=== PATIENT | female | born 1950 | race Caucasian/White ===

== ENCOUNTER 2017-11-05 12:45 | Outpatient (CLI) ==
--- NOTE | 2017-11-05 13:35 | CT ---
EXAM: CT sinuses/facial bones without contrast HISTORY: Chronic sinusitis COMPARISON: None TECHNIQUE: Serial axial images of the facial bones/sinuses were obtained without IV contrast. These were viewed in coronal, sagittal and axial planes. FINDINGS: The maxillary sinuses are clear. There is minimal mucosal thickening of the ethmoid air c ells. The sphenoid sinuses are clear. Frontal sinuses are clear. The mastoid air cells are normal. There is rightward nasal septal deviation with a 0.3 cm rightward nasal septal spur. The nasal tur binates are normal. Ostiomeatal units are patent. The soft tissues are unremarkable. IMPRESSION: 1. Minimal mucosal thickening in the ethmoid air cells. 2. Mild rightward nasal septal deviation with a nasal septal spur. 3. Ostiomeatal units are patent.
--- NOTE | 2017-11-05 20:05 | MRI ---
EXAM: Brain and posterior fossa MRI with and without contrast. HISTORY: Left facial weakness and headache. COMPARISON: Sinus CT scan 11/05/2017. TECHNIQUE: Multiplanar, multisequence MR images were acquired of the brain with thin sections throug h the posterior fossa before and after administration of intravenous contrast. FINDINGS: The midline structures are central and the craniocervical junction is unremarkable. There is mild prominence of the subarachnoid space anterior to both frontal lobes. The ventricles are nor mal in size. There is mild prominence of some frontal and parietal sulci at the convexity. These fi ndings are compatible normal variation. The brain parenchyma has small T2 hyperintensities in the supratentorial white matter and right caleb idline hernandez compatible with mild to moderate supratentorial and mild pontine leukomalacia. Many of th e T2 hyperintensities have T2 shine through. There is a small area of diffusion restriction with serafin nt bright B 1000, dark ADC signal in the left paramidline hernandez (B 1000 images #7,8). This is without T2 hyperintensity on the standard axial T2W images. However, there is possible faint bright T2 sign al in this area on the thin section coronal T2W sequence. This is suggestive of a small area of rece nt ischemia. After administration of gadolinium, no enhancing lesions are identified. The corpus matt losum has a normal configuration. The sella is expanded and the pituitary gland flattened inferiorly consistent with a mostly empty sella. There are no intraorbital masses. There has been previous lens surgery bilaterally. Hyperostosis fr ontalis interna is present. Mild scattered mucosal thickening is present in the ethmoid air cells. There is rightward nasal septal deviation with a small spur. Middle ears and mastoids are unremarkab le. There is no abnormal contrast enhancement in the internal auditory canals labyrinthine structure s. Flow voids are present in the major intracranial arteries. Dural venous sinuses are patent. IMPRESSION: 1. Possible small area of recent ischemia left paramidline hernandez. 2. No intracranial mass or acute hemorrhage. 3. 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 Clinical considerations include c hronic ischemic small vessel disease and sequela of migraines. 4. Mostly empty sella.
== END 2017-11-05 12:46 | disposition home or self-care (01) ==
LOC: RAD 12:45
PROVIDERS: ATTEND Family Medicine
DX: R29.810 Facial weakness (principal); R51 Headache; J30.89 Other allergic rhinitis; J32.9 Chronic sinusitis, unspecified

== ENCOUNTER 2018-06-11 13:00 | Outpatient (RCR) ==
--- NOTE | 2018-05-28 15:44 | RS.OPPTEV2 ---
Date of Note: 05/28/18 Visit #: 1 Date of Evaluation: 05/28/18 Treatment Diagnosis: Left leg pain History of Condition/Mechanism of Injury:: Patient states she fell about three weeks ago with left leg underneath her. Prior Level of Function.....Patient was independent with: ADL's, Self Care, Caregiving, Ambulation/Mobility, Community Integration/Access Functional Limitations: Sleep, ADL's, Sitting, Standing, Squatting, Ambulation, Community Access/Integration Current Subjective/complaints:: Patient reports pain in left leg since she fell. States pain is at the lateral side and posterior region of left knee and upper calf. She denies tingling or numbness. She had no prior issues with the left LE before this fall. She has been taking Ibuprofen and using ice to the leg. Reports increased pain with prolonged sitting, standing, and walking. She has woken up at night due to pain. States she has some discomfort as well at the left ankle. She thought she might have sprained the ankle when she fell. Treatment Side (optional): Left Medical History Medical History Comments:: Macular Degeneration Surgical History: Hysterectomy Smoking Status: Never smoker Hx Home Medications: Mcintosh, Ibuprofen, Aspirin, Celexa Patient's Goals: Her goal is to get relief of left LE pain. Pain Assessment - Pain Description Pain Location: Left lateral knee and upper calf Current Pain Intensity: 3-4/10 Worst Pain Intensity: 10 Functional Outcome Measure LE Functional Scale: 37 (37/80=53.75% impairment) - G Codes & Severity Modifier G Codes & Modifier: Mobility current CK. Mobility goal CI Source of G Code score: LE functional scale Observation - Observation Inspection: Left LE presents with no bruising or obvious swelling at knee joint. Calf and ankle appear slightly larger than the right. Gait - Gait Pattern Gait Comments: Ms. Borrego ambulates without an assistive device. She lacks full terminal knee extension at heel strike and also demonstrates decreased left knee flexion during swing phase. - Left Hip Strength Left Hip Flexion: 4- Good- Left Hip Extension: 4 Good Left Hip Abduction: 4 Good Left Hip Adduction: 4+ Good + Left Hip External Rotation: 4 Good Left Hip Internal Rotation: 4 Good - Right Hip Strength Right Hip Flexion: 4 Good Right Hip Extension: 4 Good Right Hip Abduction: 4 Good Right Hip Adduction: 4+ Good + Right Hip External Rotation: 4 Good Right Hip Internal Rotation: 4 Good - Special Test ORA Test: Negative Left, Negative Right Jose Maria Test: Positive Left Knee ROM: Bilaterally WFL's Knee Muscle Strength: Bilaterally WFL's - Special Tests Knee Anterior Drawer Test: Negative Left, Negative Right Knee Posterior Drawer Test: Negative Left, Negative Right Knee Valgus Stress Test: Negative Left, Negative Right Knee Varus Stress Test: Negative Left, Negative Right Palpation Comments:: Reports tenderness with palpation along the lateral joint line and superior/lateral portion of calf region. Also reports some tenderness along the inferior/lateral HS tendons. Sensation - Sensation Right Lower Extremity: Intact/Normal Left Lower Extremity: Intact/Normal Additional Comments: Additional Comments: SLR in supine: right to 40-45 degrees, left 35-40 degrees. Ankle DF on the left 5 degrees, right 10 degrees. - Treatment Modality: Ultrasound Parameters/Method Applied: 1.5 w/cm2 continuous X 8 mins to the lateral aspect of the left knee joint, calf, and HS. Patient Position: Right Sidelying Interventions - Exercise/Activities/Manual Therapy Exercises/Activities: Patient instructed in HS, ITB (left leg over the right then bring to chest), and heelcord stretch for HEP. Patient reports being surprised how good the heelcord stretch feels. Total minutes of Exercise: 5 mins Manual Therapy: NA HOME EXERCISE PROGRAM: HS, ITB (left leg over the right then bring to chest), and heelcord stretch - Charges Timed Code Treatment Minutes: 13 mins Total Treatment Time: 48 mins Procedures billed for this date of service:: FAY Mcfarlane, EVALUATION COMPLEXITY LEVEL EVALUATION COMPLEXITY LEVEL: HISTORY: Low, EXAM OF BODY SYSTEMS: Low, CLINICAL PRESENTATION: Low, CLINICAL DECISION MAKING: Low Assessment Assessment: Patient presents to therapy with a diagnosis of Iliotibial band syndrome affecting left lower leg. She presents with tenderness over the lateral aspect of the left knee and exhibits tightness at the left ITB, HS, and heelcord. She reports pain increased with prolonged sitting, standing, and walking. She presents with potential to get relief of symptoms from stretching exercises and modalities to reduce inflammation. Patient Education: Education of diagnosis, Body/Joint mechanics, Home Exercise Program, Activity Modification, Education of Plan of Care Rehab Potential: Good Short Term Goals Goal #1: Pt independent and compliant with HEP. Goal to be met by: 06/04/18 Goal #2: Left SLR to 50 degrees. Goal to be met by: 06/07/18 Goal #3: Left leg pain <3/10. Goal to be met by: 06/07/18 Goal #4: Tenderness along left lateral knee joint decreased to minimal. 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 Goal to be met by: 06/18/18 Goal #2: Pt will amb. community distances with min. to no left LE pain. Goal to be met by: 06/18/18 Goal #3: Score on LE functinal scale improved to 19% or less impairment. Goal to be met by: 06/18/18 Goal #4: Pt to report min. to no LLE pain following prolonged sitting. Goal to be met by: 06/18/18 Plan - Treatment to be Provided Procedures: Therapeutic Exercises, Therapeutic Activity, Manual Therapy, Patient Education Modalities: Ultrasound/Phonophoresis, Cryotherapy, Hot Packs - Treatment Plan Frequency: 3 X week Duration: 2 weeks ORDER # VISITS AND/OR THROUGH DATE: 06/18/18 - Treatment Code (1) Leg pain Code(s): M79.606 - PAIN IN LEG, UNSPECIFIED Qualifiers: Laterality: left Qualified Code(s): M79.605 - Pain in left leg (2) Iliotibial band syndrome of left side Code(s): M76.32 - ILIOTIBIAL BAND SYNDROME, LEFT LEG Comments: M76.32
--- NOTE | 2018-05-29 14:58 | RS.OPPTDN ---
Subjective Date of Note: 05/29/18 Visit #: 2 Date of Evaluation: 05/28/18 Treatment Diagnosis: Left leg pain Current Subjective/complaints:: Patient reports reduction in pain and muscle tightness in the left hamstring with modalities and stretching today. Pain Assessment - Pain Description Pain Description: Tightness, Aching Current Pain Intensity: mild to mod - Treatment Modality: Ultrasound Parameters/Method Applied: [id number] US at 1.5w/cm2 to the distal third of the left hamstrings prior to stretching. Patient Position: Right Sidelying - Heat/Cryotherapy Treatment: Hot Pack ([id number] to the left hamstrings prior to US and EX. Patient in supine. ) Interventions - Exercise/Activities/Manual Therapy Exercises/Activities: Assisted stretching of the bilateral HS, SKTC, piriformis , ITB, and heel cords. Focus on the left LE. Patient eduction of body mechanics and advised to continue HEP of stretching. Total minutes of Exercise: 19mins Manual Therapy: NA HOME EXERCISE PROGRAM: HS, ITB (left leg over the right then bring to chest), and heelcord stretch - Charges Timed Code Treatment Minutes: 29mins Total Treatment Time: 44mins Procedures billed for this date of service:: HP, US, EX Assessment: Patient responded well to treatment with reports of reduction in pain and tightness. She is motivated to work on HEP. Patient Education: Body/Joint mechanics, Home Exercise Program Patient demonstrates compliance with HEP?: Yes Short Term Goals Goal #1: Pt independent and compliant with HEP. Goal to be met by: 06/04/18 Progress towards Goal:: Progressing Goal #2: Left SLR to 50 degrees. Goal to be met by: 06/07/18 Progress towards Goal:: Progressing Goal #3: Left leg pain <3/10. Goal to be met by: 06/07/18 Progress towards Goal:: Progressing Goal #4: Tenderness along left lateral knee joint decreased to minimal. Goal to be met by: 06/07/18 Skilled Nursing Goals Goal #1: Pt knows HEP and to continue ex's to maintain functional level at D/C. Goal to be met by: 06/18/18 Goal #2: Pt will amb. community distances with min. to no left LE pain. Goal to be met by: 06/18/18 Goal #3: Score on LE functinal scale improved to 19% or less impairment. Goal to be met by: 06/18/18 Goal #4: Pt to report min. to no LLE pain following prolonged sitting. Goal to be met by: 06/18/18 Plan PLAN OF CARE EXPIRES ON:: 06/18/18 ORDER # VISITS AND/OR THROUGH DATE: 06/18/18 PLAN: Continue modalities and progress exercise to decrease pain and increase patients functional activity level.
--- NOTE | 2018-06-02 15:54 | RS.OPPTDN ---
Subjective Date of Note: 06/02/18 Visit #: 3 Date of Evaluation: 05/28/18 Treatment Diagnosis: Left leg pain Current Subjective/complaints:: Patient says she is hurting more today. Reports that she had to do a lot of walking and has had soreness to the L lower leg. States she is eager to return to [employer]. She expresses gratitude for us that we have helped her so far. Pain Assessment - Pain Description Pain Location: elevated - Treatment Modality: Ultrasound Parameters/Method Applied: continuous @ 1.5 w/cm2 x 12 mins to the L lateral aspect of the knee and distal HS/proximal calf Patient Position: Right Sidelying - Heat/Cryotherapy Treatment: Hot Pack (over the L hip/lower leg in sidelying) Interventions - Exercise/Activities/Manual Therapy Exercises/Activities: Assisted stretching of the bilateral HS, SKTC, piriformis , ITB, and heel cords. Focus on the left LE. Reviewed HEP. Total minutes of Exercise: 16 Manual Therapy: NA HOME EXERCISE PROGRAM: HS, ITB (left leg over the right then bring to chest), and heelcord stretch - Charges Timed Code Treatment Minutes: 28 Total Treatment Time: 48 Procedures billed for this date of service:: hp, u/s, ex Assessment: Patient presents with elevated pain to the L lateral knee and lower leg due to prolonged amb. She admits improved pain following session today. Improved WBing on the L LE with leaving the dept as a result. Patient Education: Education of diagnosis, Home Exercise Program, Education of Plan of Care Patient demonstrates compliance with HEP?: Yes Short Term Goals Goal #1: Pt independent and compliant with HEP. Goal to be met by: 06/04/18 Progress towards Goal:: Progressing Goal #2: Left SLR to 50 degrees. Goal to be met by: 06/07/18 Progress towards Goal:: Progressing Goal #3: Left leg pain <3/10. Goal to be met by: 06/07/18 Progress towards Goal:: Progressing Goal #4: Tenderness along left lateral knee joint decreased to minimal. Goal to be met by: 06/07/18 Agricultural Equipment Mechanic Goals Goal #1: Pt knows HEP and to continue ex's to maintain functional level at D/C. Goal to be met by: 06/18/18 Goal #2: Pt will amb. community distances with min. to no left LE pain. Goal to be met by: 06/18/18 Goal #3: Score on LE functinal scale improved to 19% or less impairment. Goal to be met by: 06/18/18 Goal #4: Pt to report min. to no LLE pain following prolonged sitting. Goal to be met by: 06/18/18 Plan PLAN OF CARE EXPIRES ON:: 06/18/18 ORDER # VISITS AND/OR THROUGH DATE: 06/18/18 PLAN: Patient to continue for modalities and therex for the L knee
--- NOTE | 2018-06-08 16:01 | RS.OPPTDN ---
Subjective Date of Note: 06/08/18 Visit #: 4 Date of Evaluation: 05/28/18 Treatment Diagnosis: Left leg pain Current Subjective/complaints:: Reports left leg pain continues to improve. Reports mild discomfort at the lateral distal thigh and into lower leg. Reports pain relief following modalities and exercise. Pain Assessment - Pain Description Pain Location: left lateral leg Pain Description: Dull, Aching Current Pain Intensity: mild - Treatment Modality: Ultrasound Parameters/Method Applied: [id number] at 1.5w/cm2 to the lower left lateral thigh to the lateral upper calf. Patient Position: Supine - Heat/Cryotherapy Treatment: Hot Pack ([id number] to the left leg above and just below the lateral knee joint. Patient in supine. ) Interventions - Exercise/Activities/Manual Therapy Exercises/Activities: Assisted stretching of the bilateral HS, SKTC, piriformis , ITB, and heel cords. Focus on the left LE. Isometric hip flexion. isometric hip add. Reviewed HEP. Total minutes of Exercise: 17mins Manual Therapy: NA HOME EXERCISE PROGRAM: HS, ITB (left leg over the right then bring to chest), and heelcord stretch - Charges Timed Code Treatment Minutes: 27mins Total Treatment Time: 47mins Procedures billed for this date of service:: HP, US, EX Assessment: Patient reporting consistent improvement in pain with treatment and progressing HEP. Patient Education: Body/Joint mechanics, Home Exercise Program, Home Safety, Activity Modification Comments: Continue progression of flexibility and stability exercise to reduce pain and increase functional activity level. Patient demonstrates compliance with HEP?: Yes Short Term Goals Goal #1: Pt independent and compliant with HEP. Goal to be met by: 06/04/18 Progress towards Goal:: Partially Met Goal #2: Left SLR to 50 degrees. Goal to be met by: 06/07/18 Progress towards Goal:: Partially Met Goal #3: Left leg pain <3/10. Goal to be met by: 06/07/18 Progress towards Goal:: Partially Met Goal #4: Tenderness along left lateral knee joint decreased to minimal. Goal to be met by: 06/07/18 Progress towards Goal:: Partially Met Plasma Processing Centrifuge Operator Goals Goal #1: Pt knows HEP and to continue ex's to maintain functional level at D/C. Goal to be met by: 06/18/18 Progress towards goal: Progressing Goal #2: Pt will amb. community distances with min. to no left LE pain. Goal to be met by: 06/18/18 Goal #3: Score on LE functinal scale improved to 19% or less impairment. Goal to be met by: 06/18/18 Goal #4: Pt to report min. to no LLE pain following prolonged sitting. Goal to be met by: 06/18/18 Plan PLAN OF CARE EXPIRES ON:: 06/18/18 ORDER # VISITS AND/OR THROUGH DATE: 06/18/18 PLAN: Progress to reduce pain and increase functional activity level.
--- NOTE | 2018-06-12 08:55 | RS.OPPTDN ---
Subjective Date of Note: 06/11/18 Visit #: 5 Date of Evaluation: 05/28/18 Treatment Diagnosis: Left leg pain Current Subjective/complaints:: Patient reports she only has mild to mod discomfort at the left lateral leg just below knee. Soreness at the hamstring tendon has almost resolved. Reports performing all light and most of her regular daily activities at home. States she will continue HEP as she has made good progress. Pain Assessment - Pain Description Pain Location: left lateral knee and lower leg Current Pain Intensity: 2/10 - Treatment Modality: Ultrasound Parameters/Method Applied: x8mins US at 1.5w/cm2 to the left lateral knee, hamstring tendon, and just below knee joint along the upper fibula. Patient Position: Supine - Heat/Cryotherapy Treatment: Hot Pack ([id number] to the left LE at the lateral knee and lower leg prior to US and EX. Patient in supine. ) Interventions - Exercise/Activities/Manual Therapy Exercises/Activities: Assisted stretching of the bilateral HS, SKTC, piriformis , ITB, and heel cords. Focus on the left LE. Isometric hip flexion. Isometric hip add. Patient education of proper stretching and benefits of LE and trunk strengthening. Total minutes of Exercise: 14mins Manual Therapy: Manual therapy for myofascial stretching at the proximal fibula along the peroneus longus. Instructed in self massage and stretching. Total minutes of Manual Therapy: 5mins HOME EXERCISE PROGRAM: HS, ITB (left leg over the right then bring to chest), and heelcord stretch - Objective Findings Observations,measurements,etc.: Patients LE functional scale score increased to 60/80 or 25% (was 37/80 or 53.75% on Eval). - Charges Timed Code Treatment Minutes: 29mins Total Treatment Time: 44mins Procedures billed for this date of service:: HP, US, EX Assessment: Patient has met 6 of 8 treatment goals. She is independent with HEP and feels she can continue HEP at this time. Patient Education: Body/Joint mechanics, Home Exercise Program Comments: Finalized all patient education of joint mechanics, safety, and HEP. Patient demonstrates compliance with HEP?: Yes Short Term Goals Goal #1: Pt independent and compliant with HEP. Goal to be met by: 06/04/18 Progress towards Goal:: Met Goal #2: Left SLR to 50 degrees. Goal to be met by: 06/07/18 Progress towards Goal:: Met Goal #3: Left leg pain <3/10. Goal to be met by: 06/07/18 Progress towards Goal:: Met Goal #4: Tenderness along left lateral knee joint decreased to minimal. 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 Goal to be met by: 06/18/18 Progress towards goal: Met Goal #2: Pt will amb. community distances with min. to no left LE pain. Goal to be met by: 06/18/18 Progress towards goal: Met Comments: Mild discomfort Goal #3: Score on LE functinal scale improved to 19% or less impairment. Goal to be met by: 06/18/18 Progress towards goal: Partially Met Comments: 25% impairment, but continually improving Goal #4: Pt to report min. to no LLE pain following prolonged sitting. Goal to be met by: 06/18/18 Progress towards goal: Partially Met Plan PLAN OF CARE EXPIRES ON:: 06/18/18 ORDER # VISITS AND/OR THROUGH DATE: 06/18/18 PLAN: Discharge with HEP.
== END 2018-06-12 23:59 ==
PROVIDERS: ATTEND Orthopaedic Surgery
DX: M76.32 Iliotibial band syndrome, left leg (principal)